=== PATIENT | male | born 1995 | race Caucasian/White ===

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

== ENCOUNTER 2017-07-05 10:24 | Emergency (ER) | payer BC ==
[~2017-07-05] VITALS: Ht 177.8 cm; Wt 90.5 kg
[~2017-07-05 10:24] MED LIST changes: -ALBU1AER9 INH; +CLBCRM30 EXT; -CLOB-65 EXT; -ESCI1TAB10 PO; -OMEP40CA PO; +OMEP40CA41 PO; +VENL150C PO; +VNTHFA/IN INH
[2017-07-05 10:28] VITALS: BP 135/83; PULSE 108; TEMP 36.9; O2SAT 96; Ht 177.8 cm; Wt 90.5 kg
--- NOTE | 2017-07-05 10:41 | EMERGENCY ROOM VISIT NOTE ---
ED Visit Note First contact with patient: 10:31 CHIEF COMPLAINT: Facial laceration HISTORY OF PRESENT ILLNESS: This 22-year-old male patient presents emergency department ambulatory complaining of a laceration to the left-sided forehead. The patient was helping a friend move and was outside the building. He bent over to pick something up and when he stood up he hit the left side of his forehead on the electric meter box. The patient did not strike his head on the ground. He did not have a loss of consciousness. He did become pale, sweaty and felt nauseated. There was no loss of consciousness, vomiting, or unusual behavior afterwards. Denies neck pain. No headache, nausea, or blurred vision. There is minimal bleeding. The patient denies any pain. The patient' s tetanus shot is up to date. REVIEW OF SYSTEMS: A 6 system review of systems was completed with positives and pertinent negatives listed in the HPI. ALLERGIES: Eggs, milk, peanuts MEDICATIONS: See nursing notes PMH: Eczema, GERD SOCIAL HISTORY: The patient lives locally. He is a smoker PHYSICAL EXAM: Vital Signs: Reviewed Nurse's notes, vital signs stable. GENERAL : This is a 22-year-old male, in no acute distress, well-developed, well- nourished. NEURO: The patient is alert and oriented to person place and time. No focal neurological defects. EYES: Pupils are round, equal, and react to light. EOMI. EARS: No hemotympanum. NECK: Supple. No cervical spine tenderness. FACE: No facial bone tenderness or mandibular tenderness. The mouth can open fully. The teeth are well aligned. No loose or chipped teeth. SKIN: There is a 3 cm laceration to the left side of the forehead. The edges gape apart with traction. There is minimal active bleeding and no foreign material in the wound. There are no deep structures present. Capillary refill less than two seconds. Normal sensation to light and sharp touch. EMERGENCY DEPARTMENT COURSE: I examined the patient. Using sterile technique the wound was cleaned with Betadine. The area was sterilely draped. 5 ml of 1% buffered lidocaine was used to anesthetize the laceration on the face. Once the patient was numb, the wound was copiously irrigated under pressure with sterile saline. The wound was explored and was as described above. The laceration was repaired using 3 subcuticular 6-0 fast absorbing sutures and 8 simple interrupted 6-0 nylon sutures were used to close the skin with the wound edges being well approximated. The patient tolerated the procedure well. The bleeding stopped. The area was cleaned with sterile saline and dressed with bacitracin ointment and bandage. The patient did not fall to the ground. He did not have any loss of consciousness. The patient did feel lightheaded, pale and diaphoretic when it initially happened. That has completely resolved. I suspect that he had a vagal response. The patient was discharged home in good condition. DIAGNOSIS: Facial laceration DISCHARGE INSTRUCTIONS: Keep wound clean and dry. Do not allow any crusting or dried blood to accumulate on sutures. If this occurs, use a 1:1 solution of hydrogen peroxide/water on a Q-tip to clean the wound. Use an antibiotic ointment for 3 days, then let wound dry. Suture removal in 5-7 days. Return sooner for any signs of infection (increasing redness, swelling, drainage, fever ). Ice for swelling. Keep covered when in sun until sutures removed then SPF 50 or higher for one year. Vitamin E oil if desired two weeks after suture removal for reduction of scar. 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 Status: Chronic (2) Anxiety Status: Chronic (3) Depression Status: Chronic (4) Epilepsy Status: Chronic (5) Gastro-esophageal reflux disease without esophagitis Status: Chronic (6) Narcolepsy without cataplexy Status: Chronic (7) Unspecified asthma Status: Chronic Current/Historical Medications Scheduled Albuterol Hfa (Ventolin Hfa), 2-4 PUFFS INH Q6H Amphetamine-Dextroamphetamine 20MG (Adderall 20MG), 40 MG PO BID Bupropion Hcl (Bupropion Hcl Xl), 300 MG PO QAM Clobetasol Propionate (Clobetasol Propionate Cream 0.05%), 1 APPLN EXT BID Epinephrine (Epipen), 0.3 MG IM UD Omeprazole (Prilosec), 40 MG PO DAILY Ranitidine (Zantac), 300 MG PO HS Tacrolimus (Topical) (Protopic), 1 APPLN TOP 5XWK Venlafaxine Hcl (Effexor Xr), 150 MG PO QAM Allergies Coded Allergies: Egg (Verified Allergy, Unknown, ANAPHYLATIC, 07/05/17) Milk (Verified Allergy, Unknown, ANAPHYLACTIC, 07/05/17) Peanut (Verified Allergy, Unknown, ANAPHYLACTIC, 07/05/17) Vital Signs Date Time Temp Pulse Resp B/P (MAP) Pulse Ox O2 Delivery O2 Flow Rate FiO2 07/05/17 10:28 36.9 108 20 135/83 96 Room Air Departure Information Impression Primary Impression: Closed head injury Additional Impression: Laceration of face Dispostion Home / Self-Care Condition GOOD Referrals Aleksandra Ramirez M.D. (PCP) Patient Instructions ED Head Injury Closed, ED Laceration All, My [facility] Additional Instructions Keep wound clean and dry. Do not allow any crusting or dried blood to accumulate on sutures. If this occurs, use a 1:1 solution of hydrogen peroxide/ water on a Q-tip to clean the wound. Use an antibiotic ointment for 3 days, then let wound dry. Suture removal in 5-7 days. Return sooner for any signs of infection (increasing redness, swelling, drainage, fever). Ice for swelling. Keep covered when in sun until sutures removed then SPF 50 or higher for one year. Vitamin E oil if desired two weeks after suture removal for reduction of scar. Problem Qualifiers Primary Impression: Closed head injury Encounter type: initial encounter Qualified Codes: S09.90XA - Unspecified injury of head, initial encounter Additional Impression: Laceration of face Encounter type: initial encounter Qualified Codes: S01.81XA - Laceration without foreign body of other part of head, initial encounter
[2017-07-05] MEDS ORDERED: XYLOCAINE 1%/SOD BICARB 20 ML VIAL INFIL ONE (10:45)
== END 2017-07-05 11:35 | disposition home or self-care (01) ==
LOC: C.EDB 10:25 → C.EDA 11:35
DX: S01.81XA Laceration without foreign body of other part of head, initial encounter (principal); W22.8XXA Striking against or struck by other objects, initial encounter; Y93.E6 Activity, residential relocation; K21.9 Gastro-esophageal reflux disease without esophagitis; L30.9 Dermatitis, unspecified; F17.210 Nicotine dependence, cigarettes, uncomplicated; F41.9 Anxiety disorder, unspecified; F32.9 Major depressive disorder, single episode, unspecified; G40.909 Epilepsy, unspecified, not intractable, without status epilepticus; G47.419 Narcolepsy without cataplexy; J45.909 Unspecified asthma, uncomplicated; Z79.899 Other long term (current) drug therapy

== ENCOUNTER → 2017-08-16 | Outpatient (CLI) | payer BC ==
[~2017-08-16] MED LIST changes: -DIPH25CA65 PO; -LEVO-371 PO; -MISCCAP80 PO; +TACR0.1O TOP; -TACR0.1O18 TOP
--- NOTE | 2017-08-16 14:14 | DIAGNOSTIC IMAGING REPORT ---
(TESTICULAR) SCROTUM-CONT CLINICAL HISTORY: 22 years-old Male presenting with PAIN OF TESTES. TECHNIQUE: Real-time grayscale and color and spectral Doppler ultrasound imaging of the scrotum was performed. COMPARISON: None. FINDINGS: Right testis: Normal echogenicity and echotexture. Testis measures 5.1 x 3.3 x 2.7 cm. Normal color Doppler flow and arterial and venous waveforms in the testicular parenchyma. Epididymal head contains a 2 mm cyst or spermatocele. Trace hydrocele. No varicocele. Left testis: Normal echogenicity and echotexture. Testis measures 4.9 x 3.1 x 2.6 cm. Normal color Doppler flow and arterial and venous waveforms in the testicular parenchyma. Epididymal head normal. No hydrocele. No varicocele. Symmetric perfusion of the testes. IMPRESSION: No evidence of testicular torsion or epididymitis-orchitis. Electronically signed by: Howard Figueroa M.D. 08/16/2017 2:13 PM Dictated Date/Time: 08/16/2017 2:11 PM
== END | disposition home or self-care (01) ==
LOC: C.ULTR 13:10
PROVIDERS: ATTEND Registered Nurse
DX: N50.819 Testicular pain, unspecified (principal)

== ENCOUNTER 2017-09-10 10:32 | Emergency (ER) | payer BC ==
[~2017-09-10] VITALS: Ht 177.8 cm; Wt 95.0 kg
[2017-09-10 10:35] VITALS: TEMP 36.8; Ht 177.8 cm; Wt 95.0 kg
[2017-09-10 11:41] LABS: URINE APPEARANCE CLEAR (CLEAR); URINE BILIRUBIN NEG (NEG); URINE COLOR DK YELLOW; URINE NITRITE NEG (NEG); URINE PH 5.5 (4.5-7.5); URINE SPECIFIC GRAVITY 1.025 (1.000-1.030); UROBILINOGEN NEG (NEG)
[2017-09-10 11:45] LABS: MANUAL MICROSCOPIC REQUIRED? NO; REVIEW REQ? NO
[2017-09-10 12:15] LABS: BASO % 0.8 %; BASO ABS # 0.05 K/uL (0-0.2); COMPLETE YES; EOS % 7.4 %; HEMATOCRIT 45.9 % (42-52); IG% 0.3 %; LYMPH % 24.9 %; LYMPH ABS # 1.49 K/uL (1.2-3.4); MEAN CELL VOLUME 84.4 fL (80-100); MEAN CORPUSCULAR HEMOGLOBIN 29.6 pg (25-34); MEAN CORPUSCULAR HGB CONC 35.1 g/dl (32-36); MEAN PLATELET VOLUME 9.8 fL (7.4-10.4); MONO % 8.7 %; NEUT % 57.9 %; PLATELET COUNT 295 K/uL (130-400); RED BLOOD COUNT 5.44 M/uL (4.7-6.1); WHITE BLOOD COUNT 5.98 K/uL (4.8-10.8)
[2017-09-10 12:31] LABS: BUN/CREATININE RATIO 8.8 (10-20); CALCIUM 9.1 mg/dl (8.5-10.1); CREATININE 0.89 mg/dl (0.60-1.40); POTASSIUM 3.5 mmol/L (3.5-5.1)
--- NOTE | 2017-09-10 12:45 | DIAGNOSTIC IMAGING REPORT ---
(TESTICULAR) SCROTUM-CONT HISTORY: Pain bilat testicular pain, recent epididymitis COMPARISON: 08/16/2017 FINDINGS: Right testis: Maximum dimension 5 cm. Normal vascular flow. Left testis: Maximum dimension 5.2 cm. Small 3 mm epididymal cyst. Normal vascular flow. IMPRESSION: Normal testicular ultrasound. Small left epididymal cyst. Normal vascular flow. Very small bilateral hydroceles of doubtful clinical significance The above report was generated using voice recognition software. It may contain grammatical, syntax or spelling errors. Electronically signed by: Jacek Luong M.D. 09/10/2017 12:44 PM Dictated Date/Time: 09/10/2017 12:43 PM
[2017-09-10] MEDS ORDERED: CEFTRIAXONE SOD INJ 1 GM ADDVIAL IV STA (13:30)
[2017-09-10] MEDS ORDERED: DOXYCYCLINE HYCLATE 100 MG CAP PO ONE (13:30)
[2017-09-10] MEDS ORDERED: CEFTRIAXONE SOD IV ONE (14:00)
[2017-09-10] MEDS ORDERED: DEXTROSE 5% IV ONE (14:00)
[2017-09-10] MEDS ORDERED: DXY100 PO (14:00)
[2017-09-10 14:41] VITALS: BP 130/74; PULSE 52; O2SAT 100
--- NOTE | 2017-09-10 18:30 | EMERGENCY ROOM VISIT NOTE ---
History Report prepared by Becca: Juancarlos Be Under the Supervision of: Dr. Ge Jules M.D. First contact with patient: 11:16 Chief Complaint: TESTICULAR PAIN Stated Complaint: TESTICULAR SWELLING AND PAIN Nursing Triage Summary: c/o worsenign testicular pain and swelling and has a lump in left and pain and swelling in the right has been tx for epididymitis History of Present Illness The patient is a 22 year old male who presents to the Emergency Room with complaints of worsening testicular pain that began recently. He has a history of epididymitis that was treated with a course antibiotics for ten days. His symptoms then occurred again 1 week later, so he went back to a clinic to be evaluated. They did not want to use antibiotics again, so they made him an appointment with Urology. His appointment is next week. However, he stopped experiencing epididymitis symptoms. His pain has now moved into his bilateral testicles. Intermittently, he will have lower abdominal pain secondary to his testicular symptoms. Yesterday, he felt a lump on his left testicle. He notes some mild urinary discomfort as well. Pt denies LOC, headache, fevers, chills, diaphoresis, visual changes, neck pain, chest pain, breathing difficulties, nausea, vomiting, back pain, melena, hematochezia, numbness, weakness, lymphadenopathy, rash, or other complaints. Source of History: patient Onset: recently Position: other (Bilateral testicles) Symptom Intensity: moderate Quality: ache Timing: constant Associated Symptoms: + abdominal pain (lower, intermittent), + urinary symptoms (mild discomfort) Review of Systems See HPI for pertinent positives and negatives. A total of ten systems were reviewed and were otherwise negative. 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 (2) Anaphylaxis (3) Anxiety (4) Depression (5) Epilepsy (6) Gastro-esophageal reflux disease without esophagitis (7) Milk protein allergy (8) Narcolepsy without cataplexy (9) Unspecified asthma Family History Diabetes mellitus Heart disease Social History Smoking Status: Current Every Day Smoker Alcohol Use: none Drug Use: none Marital Status: single Housing Status: lives with family Occupation Status: employed, student Current/Historical Medications Scheduled Albuterol Hfa (Ventolin Hfa), 2-4 PUFFS INH Q6H Amphetamine-Dextroamphetamine 20MG (Adderall 20MG), 40 MG PO BID Bupropion Hcl (Bupropion Hcl Xl), 300 MG PO QAM Clobetasol Propionate (Clobetasol Propionate Cream 0.05%), 1 APPLN EXT BID Doxycycline Hyclate (Doxycycline Hyclate), 100 MG PO BID Epinephrine (Epipen), 0.3 MG IM UD Omeprazole (Prilosec), 40 MG PO DAILY Ranitidine (Zantac), 300 MG PO HS Tacrolimus (Topical) (Protopic), 1 APPLN TOP 5XWK Venlafaxine Hcl (Effexor Xr), 150 MG PO QAM Allergies Coded Allergies: Egg (Verified Allergy, Unknown, ANAPHYLATIC, 09/10/17) Milk (Verified Allergy, Unknown, ANAPHYLACTIC, 09/10/17) Peanut (Verified Allergy, Unknown, ANAPHYLACTIC, 09/10/17) Physical Exam Vital Signs Date Time Temp Pulse Resp B/P (MAP) Pulse Ox O2 Delivery O2 Flow Rate FiO2 09/10/17 14:41 52 18 130/74 100 09/10/17 12:46 77 16 119/75 99 Room Air 09/10/17 10:35 36.8 91 16 124/87 100 Room Air Physical Exam GENERAL: Awake, alert, well-appearing, in no distress HENT: Normocephalic, atraumatic. Oropharynx unremarkable. EYES: Normal conjunctiva. Sclera non-icteric. NECK: Supple. No nuchal rigidity. FROM. No JVD. RESPIRATORY: Clear to auscultation. CARDIAC: Regular rate, normal rhythm. Extremities warm and well perfused. Pulses equal. ABDOMEN: Soft, non-distended. Minimal suprapubic tenderness to palpation. No rebound or guarding. No masses. RECTAL: Deferred. : Right testicular and spermatic cord discomfort. A left testicular mass is appreciated in the epididymal/spermatic cord junction. Mildly tender to palpation. No scrotal swelling. Normal penis. No discharge. MUSCULOSKELETAL: Chest examination reveals no tenderness. The back is symmetrical on inspection without obvious abnormality. There is no CVA tenderness to palpation. No joint edema. LOWER EXTREMITIES: Calves are equal size bilaterally and non-tender. No edema. No discoloration. NEURO: Normal sensorium. No sensory or motor deficits noted. SKIN: No rash or jaundice noted. Medical Decision & Procedures ER Provider Diagnostic Interpretation: Radiology results as stated below per my review and radiologist interpretation: (TESTICULAR) SCROTUM-CONT HISTORY: Pain bilat testicular pain, recent epididymitis COMPARISON: 08/16/2017 FINDINGS: Right testis: Maximum dimension 5 cm. Normal vascular flow. Left testis: Maximum dimension 5.2 cm. Small 3 mm epididymal cyst. Normal vascular flow. IMPRESSION: Normal testicular ultrasound. Small left epididymal cyst. Normal vascular flow. Very small bilateral hydroceles of doubtful clinical significance The above report was generated using voice recognition software. It may contain grammatical, syntax or spelling errors. Electronically signed by: Jacek Luong M.D. 09/10/2017 12:44 PM Dictated Date/Time: 09/10/2017 12:43 PM Laboratory Results 09/10/17 11:50 Red Blood Count 5.44, Mean Corpuscular Volume 84.4, Mean Corpuscular Hemoglobin 29.6, Mean Corpuscular Hemoglobin Concent 35.1, Mean Platelet Volume 9.8, Neutrophils (%) (Auto) 57.9, Lymphocytes (%) (Auto) 24.9, Monocytes (%) (Auto) 8.7, Eosinophils (%) (Auto) 7.4, Basophils (%) (Auto) 0.8, Neutrophils # (Auto) 3.46, Lymphocytes # (Auto) 1.49, Monocytes # (Auto) 0.52, Eosinophils # (Auto) 0.44, Basophils # (Auto) 0.05 09/10/17 11:50 Test 09/10/17 11:10 09/10/17 11:50 Urine Color DK YELLOW Urine Appearance CLEAR (CLEAR) Urine pH 5.5 (4.5-7.5) Urine Specific Elizabeth 1.025 (1.000-1.030) Urine Protein NEG (NEG) Urine Glucose (UA) NEG (NEG) Urine Ketones TRACE (NEG) Urine Occult Blood NEG (NEG) Urine Nitrite NEG (NEG) Urine Bilirubin NEG (NEG) Urine Urobilinogen NEG (NEG) Urine Leukocyte Esterase NEG (NEG) White Blood Count 5.98 K/uL (4.8-10.8) Red Blood Count 5.44 M/uL (4.7-6.1) Hemoglobin 16.1 g/dL (14.0-18.0) Hematocrit 45.9 % (42-52) Mean Corpuscular Volume 84.4 fL (80-100) Mean Corpuscular Hemoglobin 29.6 pg (25-34) Mean Corpuscular Hemoglobin Concent 35.1 g/dl (32-36) Platelet Count 295 K/uL (130-400) Mean Platelet Volume 9.8 fL (7.4-10.4) Neutrophils (%) (Auto) 57.9 % Lymphocytes (%) (Auto) 24.9 % Monocytes (%) (Auto) 8.7 % Eosinophils (%) (Auto) 7.4 % Basophils (%) (Auto) 0.8 % Neutrophils # (Auto) 3.46 K/uL (1.4-6.5) Lymphocytes # (Auto) 1.49 K/uL (1.2-3.4) Monocytes # (Auto) 0.52 K/uL (0.11-0.59) Eosinophils # (Auto) 0.44 K/uL (0-0.5) Basophils # (Auto) 0.05 K/uL (0-0.2) RDW Standard Deviation 40.0 fL (36.4-46.3) RDW Coefficient of Variation 13.1 % (11.5-14.5) Immature Granulocyte % (Auto) 0.3 % Immature Granulocyte # (Auto) 0.02 K/uL (0.00-0.02) Anion Gap 6.0 mmol/L (3-11) Est Creatinine Clear Calc Drug Dose 153.2 ml/min Estimated GFR () 142.7 Estimated GFR (Non- 123.1 BUN/Creatinine Ratio 8.8 (10-20) Calcium Level 9.1 mg/dl (8.5-10.1) Total Bilirubin 0.8 mg/dl (0.2-1) Direct Bilirubin 0.2 mg/dl (0-0.2) Aspartate Amino Transf (AST/SGOT) 19 U/L (15-37) Alanine Aminotransferase (ALT/SGPT) 30 U/L (12-78) Alkaline Phosphatase 127 U/L (45-117) Total Protein 7.3 gm/dl (6.4-8.2) Albumin 4.2 gm/dl (3.4-5.0) Lipase 94 U/L (73-393) Laboratory results reviewed by me Medications Administered Medications (Trade) Dose Ordered Sig/Adam Route Start Time Stop Time Status Last Admin Dose Admin Doxycycline Hyclate (Vibramycin Cap) 100 mg ONE ONCE PO 09/10/17 13:30 09/10/17 13:32 DC 09/10/17 13:57 100 MG Ceftriaxone Sodium 250 mg/ Dextrose 27.5 ml @ 52 mls/hr ONE ONCE IV 09/10/17 14:00 09/10/17 14:31 DC 09/10/17 13:56 52 MLS/HR ED Course 1116: The patient was evaluated in room C5. A complete history and physical exam was performed. 1330: Ordered Vibramycin Cap 100 mg PO 1332: I updated the patient at this time. 1400: Ordered Ceftriaxone Sodium 250 mg/Dextrose 27.5 ml @ 52 mls/hr IV 1410: I reevaluated the patient. Discussed results and discharge instructions: He verbalized understanding and agreement. The patient is ready for discharge. Medical Decision Triage Nursing notes reviewed and agree them. The patient's history was concerning for testicular swelling. Differential diagnosis: Etiologies such as torsion, mass, infection, hernia, hydrocele, epididymitis, trauma, intra-abdominal process, as well as others were entertained. Physical examination: As above. Tender epididymis bilaterally. Normal lie. No signs of cellulitis ER treatment provided: Oral doxycycline IV Rocephin On reassessment the patient was stable. Diagnostic interpretation by me: The labs revealed an unremarkable CBC and chemistry panel. The patient had an unremarkable urinalysis. Imaging studies: Ultrasound as above The patient has a pending appointment with urology. He has tender epididymis on examination. I discussed treating him empirically and having him follow-up with urology. He will wear supportive underwear. He'll use NSAIDs. If he has any worsening symptoms he will come back. The patient felt comfortable with the plan. By the evaluation outlined above emergent etiologies such as torsion, mass, infection, hernia, significant hydrocele, trauma, intra-abdominal process, as well as others were deemed relatively unlikely. The patient was informed about the findings as listed above. All questions were answered and he was pleased with the treatment. Return instructions were outlined and the patient was discharged in stable condition. Outpatient prescription management: Doxycycline Referral: The patient was referred to urology for a recheck of the current condition. Medication Reconcilliation Current Medication List: was personally reviewed by me Blood Pressure Screening Patient's blood pressure: Normal blood pressure Blood pressure disposition: Did not require urgent referral Impression Primary Impression: Testicle tenderness Additional Impressions: Epididymitis Epididymal cyst Scribe Attestation The scribe's documentation has been prepared under my direction and personally reviewed by me in its entirety. I confirm that the note above accurately reflects all work, treatment, procedures, and medical decision making performed by me. Departure Information Dispostion Home / Self-Care Prescriptions Doxycycline Hyclate (Doxycycline Hyclate) 100 Mg Cap 100 MG PO BID for 7 Days, #14 CAP Prov: Ge Jules MD 09/10/17 Referrals No Doctor, Assigned (PCP) Forms HOME CARE DOCUMENTATION FORM, IMPORTANT VISIT INFORMATION, WORK / SCHOOL INSTRUCTIONS Patient Instructions My [facility] Additional Instructions Doxycycline 100mg: Take one pill twice daily for seven days. Take with food, but avoid dairy. Avoid prolonged sun exposure since this medication makes you temporarily more susceptible to sunburns. All antibiotics can cause diarrhea. If this occurs and you feel worse or it does not resolve in 1-2 days follow up with your doctor or return to the Emergency Department as this could be signs of serious underlying problems. Any medication can cause an allergic reaction, stop the pills immediately and return to the ER for rash, hives, breathing difficulties, or swelling. Ibuprofen(Motrin, Advil) may be used for fever or pain. Use 600mg every six hours as needed. Take with food. Avoid using more than 2400mg in a 24 hour period. Do not use 2400mg per day for more than three consecutive days without physician direction. Prolonged inappropriate use can lead to stomach upset or ulcers. And/or Tylenol: Take 1000 mg every 6 hours as needed for pain. Do not take more than 3000 mg in a 24 hour period. Wear supportive underwear. Activity as tolerated. Return to the ER for worsening testicular pain, abdominal pain, vomiting, fevers , bloody stools, or as needed. Follow-up with urology as scheduled. Problem Qualifiers
== END 2017-09-10 14:35 | disposition home or self-care (01) ==
LOC: C.EDB 10:33 → C.EDC 14:35
DX: N45.1 Epididymitis (principal); N50.3 Cyst of epididymis; F41.9 Anxiety disorder, unspecified; F32.9 Major depressive disorder, single episode, unspecified; K21.9 Gastro-esophageal reflux disease without esophagitis; J45.909 Unspecified asthma, uncomplicated; G40.909 Epilepsy, unspecified, not intractable, without status epilepticus; G47.419 Narcolepsy without cataplexy; Z83.3 Family history of diabetes mellitus; F17.210 Nicotine dependence, cigarettes, uncomplicated; Z79.899 Other long term (current) drug therapy

== ENCOUNTER 2020-04-14 16:10 | Observation (INO) ==
[2020-04-14] MEDS ORDERED: FAMOTIDINE 20MG/5ML IV PUSH IV STA (16:26)
[2020-04-14] MEDS ORDERED: SODIUM CHLORIDE 0.9% 1000ML 1,000 ML IV ONE (16:26)
[2020-04-14] MEDS ORDERED: DEXAMETHASONE SOD INJ 4 MG/ML VIAL IV STA (16:26)
[2020-04-14] MEDS ORDERED: DiphenhydrAMINE HCL 50 MG/ML VIAL IV STA ×3 (16:26→18:59)
--- NOTE | 2020-04-14 16:39 | Emergency Department Note ---
History of Present Illness General Chief complaint: Allergic Reaction Stated complaint: ALLERGIC REACTION Time Seen by Provider: 04/14/20 16:20 Source: patient Mode of arrival: ambulatory Limitations: no limitations History of Present Illness Maximum Pain Intensity: 0 milk, eggs andThis patient is a 25-year-old male who presents to the emergency department for evaluation of an allergic reaction. The patient reports that his symptoms started about 30 minutes prior to arrival. He reports that he was eating a burger and about fpc through, developed a feeling of swelling in his throat and difficulty swallowing. He then realized there was cheese on the burger. He reports he has a history of anaphylactic reactions to milk, eggs and peanuts. He reports that he immediately used his EpiPen. He reports that he feels somewhat jittery at this time and still feels a small amount of swelling in his throat. He denies any rash, itching, abdominal pain, vomiting or difficulty breathing. Home Medications Home Medications Medication Instructions Recorded Confirmed Type dextroamphetamine-amphetamine 30 mg PO BID 06/11/18 04/14/20 History [Adderall] epinephrine [EpiPen 2-Amrit] 0.3 mg IM ONCE PRN #1 ea 03/02/19 04/14/20 Rx albuterol sulfate 1 inh INHALATION QID PRN 12/04/19 04/14/20 History tacrolimus 1 applic TOPICAL DIRECTED PRN 12/04/19 04/14/20 History diphenhydramine HCl [Benadryl] 50 mg PO Q8H PRN 7 Days #30 cap 04/15/20 Rx prednisone 40 mg PO DAILY PRN 3 Days #6 tab 04/15/20 Rx Allergies Allergy/AdvReac Type Severity Reaction Status Date / Time cheese Allergy Severe ANAPHYLAXIS Unverified 04/14/20 16:57 egg Allergy Unknown ANAPHYLATIC Verified 04/14/20 16:57 milk Allergy Unknown ANAPHYLACTI Verified 04/14/20 16:57 C peanut Allergy Unknown ANAPHYLACTI Verified 04/14/20 16:57 C Past Med/Surg History Family History Mother Hypertension Grandmother Hypertension Grandfather Heart disease Diabetes Grandmother Diabetes Other No significant family history Social History Preferred Language: Welsh Communication Ability: Effective Manager Material Required: No Beliefs That Will Affect Care: None Current Living Situation: Parent and Family Feels Safe at Home: Yes Smoking Status: Current every day smoker Tobacco Type: pipe ; Hx Alcohol Use: Yes Alcohol type: beer and hard liquor Hx Substance Use: No Review of Systems A total of 10 systems reviewed and were otherwise negative Physical Exam Vital Signs Vital Signs - 24 hr 04/14/20 16:15 04/14/20 16:28 04/14/20 17:00 Temperature 37.1 C Temperature Source Oral Pulse Rate 104 H 100 H Pulse Rate [Apical] 95 H Respiratory Rate 18 16 17 Respiratory Effort / Characteristics Non-Labored Non-Labored Respiratory Depth Normal Normal Blood Pressure 140/93 133/93 Blood Pressure [Right Arm] 133/61 Blood Pressure Mean 108 107 Blood Pressure Mean [Right Arm] 85 Pulse Oximetry 100 96 100 Oxygen Delivery Method Room Air Room Air Room Air Fraction of Inspired Oxygen 96 Sepsis Recent Fever Within 48 Hours No Sepsis New/Unexplained Change in Mental Status No Sepsis Action Taken by Nursing No Action Required 04/14/20 17:15 04/14/20 17:30 04/14/20 17:41 Temperature Temperature Source Pulse Rate 114 H 116 H 125 H Pulse Rate [Apical] Respiratory Rate 15 24 19 Respiratory Effort / Characteristics Respiratory Depth Blood Pressure 123/90 119/87 139/102 H Blood Pressure [Right Arm] Blood Pressure Mean 103 103 108 Blood Pressure Mean [Right Arm] Pulse Oximetry 99 99 97 Oxygen Delivery Method Room Air Fraction of Inspired Oxygen Sepsis Recent Fever Within 48 Hours Sepsis New/Unexplained Change in Mental Status Sepsis Action Taken by Nursing 04/14/20 17:46 04/14/20 17:48 04/14/20 18:00 Temperature Temperature Source Pulse Rate 125 H 103 H Pulse Rate [Apical] 128 H Respiratory Rate 27 H 26 H 22 Respiratory Effort / Characteristics Spontaneous Short of Breath Respiratory Depth Blood Pressure 126/91 131/83 Blood Pressure [Right Arm] Blood Pressure Mean 97 98 Blood Pressure Mean [Right Arm] Pulse Oximetry 99 98 97 Oxygen Delivery Method Nebulizer Room Air Room Air Fraction of Inspired Oxygen Sepsis Recent Fever Within 48 Hours Sepsis New/Unexplained Change in Mental Status Sepsis Action Taken by Nursing VITALS: Vitals are noted on the nurse's note and reviewed by myself. GENERAL: This is a 25-year-old male, in no acute distress, nondiaphoretic, well- developed well-nourished. SKIN: The skin was without rashes. EARS: External auditory canals clear, tympanic membranes pearly huntley without erythema or effusion bilaterally. EYES: Pupils equal round and reactive to light and accommodation. MOUTH: Mucous membranes moist. Tonsils are not enlarged. Pharynx without erythema or exudate. Uvula midline. Airway patent. NECK: Supple without nuchal rigidity. No lymphadenopathy. HEART: Regular rate and rhythm without murmurs gallops or rubs. LUNGS: Clear to auscultation bilaterally without wheezes, rales or rhonchi. No retractions or accessory muscle use. ABDOMEN: Positive bowel sounds x 4. Soft, nontender to palpation. NEURO: Patient was alert and oriented to person place and time. Course Reevaluation(s) Reevaluation #1: Patient was reevaluated and was having worsening symptoms at this time. An additional dose of epinephrine as well as a racemic epinephrine nebulizer were ordered. Consultations Consultation #1: Dr. Saunders [facility] hospitalist Administered Medications Discontinued Medications Dexamethasone (Decadron) 10 mg IV NOW STA Stop: 04/14/20 16:27 Last Admin: 04/14/20 16:34 Dose: 10 mg Documented by: [id number] Diphenhydramine HCl (Benadryl) 50 mg IV NOW STA Stop: 04/14/20 16:27 Last Admin: 04/14/20 16:33 Dose: 50 mg Documented by: [id number] Diphenhydramine HCl (Benadryl) 25 mg IV NOW STA Stop: 04/14/20 17:15 Last Admin: 04/14/20 17:17 Dose: 25 mg Documented by: [id number] Diphenhydramine HCl (Benadryl) 25 mg IV NOW STA Stop: 04/14/20 19:00 Last Admin: 04/14/20 19:15 Dose: 25 mg Documented by: [id number] Diphenhydramine HCl (Benadryl Capsule) 50 mg PO Q8H [facility]AN[facility]O Stop: 05/15/20 00:00 Last Admin: 04/15/20 07:47 Dose: 50 mg Documented by: [id number] Admin: 04/15/20 00:14 Dose: 50 mg Documented by: [id number] Epinephrine (Raccemic Epinephrine 2.25% 0.5ml) 0.5 ml NEB NOW STA Stop: 04/14/20 17:39 Last Admin: 04/14/20 17:48 Dose: 0.5 ml Documented by: [id number] Epinephrine HCl (Epinephrine) 0.3 mg IM NOW STA Stop: 04/14/20 17:34 Last Admin: 04/14/20 17:36 Dose: 0.3 mg Documented by: [id number] Epinephrine HCl (Epinephrine) Confirm Administered Dose 1 mg .ROUTE .STK-MED ONE Stop: 04/14/20 17:35 Last Admin: 04/14/20 17:37 Dose: Not Given Documented by: [id number] Famotidine (Pepcid 20mg Iv Push) 20 mg IV ONE STA Stop: 04/14/20 16:27 Last Admin: 04/14/20 16:34 Dose: 20 mg Documented by: [id number] Famotidine (Pepcid 20mg Iv Push) Confirm Administered Dose 20 mg IV .STK-MED ONE Stop: 04/14/20 18:55 Last Admin: 04/14/20 18:59 Dose: Not Given Documented by: [id number] Sodium Chloride (Nss 1000ml) 1,000 mls @ 999 mls/hr IV .Q1H1M ONE Stop: 04/14/20 17:26 Last Infusion: 04/14/20 17:30 Dose: 0 mls/hr Documented by: [id number] Admin: 04/14/20 16:30 Dose: 999 mls/hr Documented by: [id number] Epinephrine HCl 4 mg/ Dextrose 254 mls @ 7.582 mls/hr IV .Q24H [facility]; Protocol Stop: 05/14/20 18:29 Last Admin: 04/15/20 06:38 Dose: Not Given Documented by: [id number] Epinephrine HCl 2 mg/ Dextrose 252 mls @ 0 mls/hr IV .Q0M STA; Protocol Stop: 04/14/20 18:27 Last Admin: 04/15/20 06:37 Dose: Not Given Documented by: [id number] Famotidine 20 mg/ Syringe 5 mls @ 2.5 mls/min IV ONE ONE Stop: 04/14/20 18:46 Last Admin: 04/14/20 18:59 Dose: 2.5 mls/min Documented by: [id number] Famotidine 20 mg/ Syringe 5 mls @ 2.5 mls/min IV Q12H [facility] Stop: 05/15/20 07:59 Last Admin: 04/15/20 07:47 Dose: 2.5 mls/min Documented by: [id number] Sodium Chloride (Nss 1000ml) 1,000 mls @ 125 mls/hr IV .Q8H [facility] Stop: 05/14/20 19:48 Last Admin: 04/15/20 04:08 Dose: 125 mls/hr Documented by: [id number] Infusion: 04/15/20 04:08 Dose: 125 mls/hr Documented by: [id number] Admin: 04/14/20 20:32 Dose: 125 mls/hr Documented by: [id number] Methylprednisolone 60 mg/ (Syringe) 0.96 mls @ 1.5 mls/min IV Q6 [facility] Stop: 05/15/20 00:00 Last Admin: 04/15/20 05:23 Dose: 1.5 mls/min Documented by: [id number] Admin: 04/15/20 00:15 Dose: 1.5 mls/min Documented by: [id number] Methylprednisolone (Solumedrol) 125 mg IV NOW STA Stop: 04/14/20 18:46 Last Admin: 04/14/20 18:59 Dose: 125 mg Documented by: [id number] Miscellaneous () 1 ea N/A NOW STA Stop: 04/14/20 18:27 Last Admin: 04/15/20 06:37 Dose: Not Given Documented by: [id number] Critical Care Time Critical Care Time: Yes Total Critical Care Time: 35 I have personally spent greater than 35 minutes of critical care time in the direct management of this patient. This includes bedside care, interpretation of diagnostic studies, and testing, discussion with consultants, patient, and family members, and other required patient management activities. This 35 minutes is in excess of all separately billable procedures. Medical Decision Making Differential Diagnosis Differential diagnosis includes allergic reaction, anaphylaxis, allergic dermatitis, angioedema, among others. Medical Records Attestation: I reviewed the patient's medical records. Home Medications Current Medication List: was personally reviewed by me Laboratory Data Attestation: I reviewed the patient's lab results. Result diagrams: 04/15/20 04:37 Blood Pressure Blood Pressure Findings: Normal blood pressure MDM Narrative The patient is a 25-year-old male who presents today for evaluation of an anaphylactic reaction after consuming dairy. Patient used his EpiPen prior to arrival. He was initially treated with IV Decadron, Benadryl, fluids and Pepcid and initially did have relief. Within an hour, patient had return of worsening symptoms and was treated with an additional dose of epi as well as racemic epinephrine nebulizer. Patient had some improvement with this but did have continued and worsening skin involvement. Given the rebound reaction and need for multiple doses of epinephrine, [facility] to [facility] the patient for further care. Impression & Plan Anaphylaxis Discharge Plan Visit Data *Final* Discharge Date/Time: 04/14/20 19:19 Chief Complaint: Allergic Reaction Stated Complaint: ALLERGIC REACTION ED Provider: [facility] ED Midlevel Provider: Luz Elena Angel Discharge Problem: Anaphylaxis Patient Disposition: Admitted As Inpatient Condition: Good Discharge Instructions Interventions: ED Discharge Assessment Last Done: 04/14/20 19:19 Discharge Problem: Anaphylaxis Qualifiers: Encounter type: initial encounter Qualified Code(s): T78.2XXA - Anaphylactic shock, unspecified, initial encounter
[2020-04-14] MEDS ORDERED: EPINEPHrine INJ 1 MG/ML AMP IM STA ×2 (17:33→19:49)
[2020-04-14] MEDS ORDERED: EPINEPHrine INJ 1 MG/ML AMP ONE (17:34)
[2020-04-14] MEDS ORDERED: RACEPINEPHRINE 2.25% NEBU SOLN 0.5 ML VIAL NEB STA (17:38)
--- NOTE | 2020-04-14 18:18 | History & Physical Report ---
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: Admission and Anticipated Discharge Date Admission Date: Patient be observed in our facility he will be given continued intravenous Solu-Medrol famotidine and Benadryl scheduled of PRN racemic nebulizers and subcutaneous epinephrine as needed be hydrated with IV fluid DVT prevention is early ambulation History of Present Illness Primary Care Provider: Jane Ng MD Patient reportedly had ordered a hamburger restaurant without cheese but it may have had a small amount of cheese he subsequently about half of the start feeling ill he began having itchiness and shortness of breath give himself an epinephrine autoinjector at home and presented to the ER Reportedly this patient has multiple food allergies and unfortunately had exposure to milk products his symptoms progressed after the epi autoinjector to the point where he became to the ER. After initial attempts to quelling his allergic reaction with parenteral steroids Pepcid and Benadryl he had a recurrence of shortness of breath and received an additional subcutaneous epinephrine and racemic epinephrine nebulizer. Patient remains with considerable injection of his eyes obvious hives and rash on his body however is not in respiratory distress he has no wheezes he did will swallow his own secretions he is tachycardic and hypertensive on the monitor Allergies Allergy/AdvReac Type Severity Reaction Status Date / Time cheese Allergy Severe ANAPHYLAXIS Unverified 04/14/20 16:57 egg Allergy Unknown ANAPHYLATIC Verified 04/14/20 16:57 milk Allergy Unknown ANAPHYLACTI Verified 04/14/20 16:57 C peanut Allergy Unknown ANAPHYLACTI Verified 04/14/20 16:57 C Home Medications Home Medications Medication Instructions Recorded Confirmed Type dextroamphetamine-amphetamine 30 mg PO BID 06/11/18 04/14/20 History [Adderall] epinephrine [EpiPen 2-Amrit] 0.3 mg IM ONCE PRN #1 ea 03/02/19 04/14/20 Rx albuterol sulfate 1 inh INHALATION QID PRN 12/04/19 04/14/20 History tacrolimus 1 applic TOPICAL DIRECTED PRN 12/04/19 04/14/20 History Past Med/Surg History Family History Mother Hypertension Grandmother Hypertension Grandfather Heart disease Diabetes Grandmother Diabetes Other No significant family history Social History Feels Safe at Home: Yes Smoking Status: Current every day smoker Review of Systems Review of Systems: Moderate distress and agitated no headache, blurry or double vision Copious mucus nasal secretions no speech or swallowing issues no chest pain, pressure or palpitations Feelings of shortness of breath, no stridor, cough or wheezes no abdominal pain, nausea or vomiting, diarrhea or constipation no dysuria, hematuria or frequency no focal joint pain or swelling no back pain, CVA tenderness or radicular pain Significant highs that are erythematous raised and pruritic no focal signs of weakness or numbness or altered sensation no complaints or anxiety or depression. Physical Exam Physical Exam: The patient appeared well nourished and normally developed. He appears to be in mild to moderate distress Vital signs as documented. Tachycardic and hypertensive Head exam is normocephalic atraumatic no scleral icterus Oropharynx is injected without exudates Neck is without JVD, thyromegaly, or carotid bruits. Lungs are clear to auscultation, no focal loss of breath sounds there are no wheezes Cardiac exam, Rhythm is tachycardic.. No murmurs, rubs or gallops. Abdominal exam reveals normal bowel sounds, soft non tender, no masses Extremities are nonedematous and both pedal pulses are normal. Neurologic exam is alert and oriented, no focal loss of strength or sensation Skin is with erythema and raised times about his flexural surfaces elbows and knees redness to his face injected sclera Psychologically is with anxiety Results & Data Results & Data ([facility]) Vital Signs (Past 12 Hours) Vital Signs Temp Pulse Pulse Resp BP BP Pulse Ox 04/14/20 18:00 103 H 22 131/83 97 04/14/20 17:48 128 H 26 H 98 04/14/20 17:46 125 H 27 H 126/91 99 04/14/20 17:41 125 H 19 139/102 H 97 04/14/20 17:30 116 H 24 119/87 99 04/14/20 17:15 114 H 15 123/90 99 04/14/20 17:00 100 H 17 133/93 100 04/14/20 16:28 95 H 16 133/61 96 04/14/20 16:15 98.8 F 104 H 18 140/93 100 PG Care Time/CCT Total # of Minutes Spent Total Time Spent with Patient: Total time spent is greater than 50% in coordination of care (as documented) at patient's floor/unit and/or counseling patient: Coding Level of Care Code 06860 OBS Care - Level 3 Diagnoses 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
[2020-04-14] MEDS ORDERED: EPINEPHrine 2 MG in DEXTROSE 5% 250 ML IV STA (18:26)
[2020-04-14] MEDS ORDERED: STAT IV Infusion **Titration per Protocol STA (18:26)
[2020-04-14] MEDS ORDERED: FAMOTIDINE 20 MG in SYRINGE 3 ML IV ONE (18:45)
[2020-04-14] MEDS ORDERED: methylPREDNISolone 125 MG/2 ML VIAL IV STA (18:45)
[2020-04-14] MEDS ORDERED: FAMOTIDINE 20MG/5ML IV PUSH IV ONE (18:54)
[2020-04-14] MEDS ORDERED: EPINEPHRINE ADULT AUTO-INJECT 0.3 MG SYR IM PRN (19:49)
[2020-04-14] MEDS ORDERED: LORazepam 0.5 MG/1 ML VIAL IV PRN (19:49)
[2020-04-14] MEDS ORDERED: ALBUTEROL 0.083% NEBU SOLN 3 ML VIAL NEB PRN (19:49)
[2020-04-14] MEDS ORDERED: MoRPHine SULFATE 2 MG/ML CARP IV PRN (19:49)
[2020-04-14] MEDS ORDERED: ONDANSETRON INJ 2 MG/ML 2 ML VIAL IV PRN (19:49)
[2020-04-14] MEDS: SODIUM CHLORIDE 0.9% 1000ML 1,000 ML IV SCH (20:32)
[2020-04-15] MEDS ORDERED: methylPREDNISolone 125 MG/2 ML VIAL IV SCH
[2020-04-15] MEDS: methylPREDNISolone 60 MG in SYRINGE 0 ML IV SCH ×2 (00:15→05:23)
[2020-04-15] MEDS: SODIUM CHLORIDE 0.9% 1000ML 1,000 ML IV SCH (04:08)
[2020-04-15 05:04] LABS: BUN Creatinine Ratio 11.4 (10-20); Calcium 8.3 mg/dl (8.5-10.1); Creatinine Clr Calc Pharmacy 139.8 ml/min; Est GFR (African American) 128.6; Potassium 4.1 mmol/L (3.5-5.1)
[2020-04-15] MEDS ORDERED: FAMOTIDINE 20 MG in SYRINGE 3 ML IV SCH (08:00)
--- NOTE | 2020-04-15 10:18 | Discharge Summary ---
Date of Service April 15, 2020 Admission HPI Per Admitting Provider Patient reportedly had ordered a hamburger restaurant without cheese but it may have had a small amount of cheese he subsequently about half of the start feeling ill he began having itchiness and shortness of breath give himself an epinephrine autoinjector at home and presented to the ER Reportedly this patient has multiple food allergies and unfortunately had exposure to milk products his symptoms progressed after the epi autoinjector to the point where he became to the ER. After initial attempts to quelling his allergic reaction with parenteral steroids Pepcid and Benadryl he had a recurrence of shortness of breath and received an additional subcutaneous epinephrine and racemic epinephrine nebulizer. Patient remains with considerable injection of his eyes obvious hives and rash on his body however is not in respiratory distress he has no wheezes he did will swallow his own secretions he is tachycardic and hypertensive on the monitor Principal Diagnosis Allergic reaction to milk Discharge Exam Constitutional WD/WN, vitals as above Eyes PERRL, conjunctivae normal, anicteric sclerae ENMT external ear and nose normal, oropharynx normal Neck trachea midline, no thyromegaly Respiratory normal respiratory effort, lungs clear to auscultation Cardiovascular RRR, no murmur, no edema Gastrointestinal (Abdomen) normal bowel sounds, soft, nontender, no hepatosplenomegaly Musculoskeletal no cyanosis or clubbing, extremities motor strength 5/5 Skin no rashes, warm and dry Neurologic patellar DTR's 2+ bilat, sensation intact and PERRL, EOMI, accommodation nl, no face palsy, no dysarthria Psychiatric A+Ox3, euthymic affect Lymphatic no cervical or axillary lymphadenopathy Discharge Data Allergies Allergy/AdvReac Type Severity Reaction Status Date / Time cheese Allergy Severe ANAPHYLAXIS Unverified 04/14/20 16:57 egg Allergy Unknown ANAPHYLATIC Verified 04/14/20 16:57 milk Allergy Unknown ANAPHYLACTI Verified 04/14/20 16:57 C peanut Allergy Unknown ANAPHYLACTI Verified 04/14/20 16:57 C Hospital Course (1) 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: received Epinephrine, Solu Medrol, Benadryl, Pepcid no symptoms morning of discharge swallowing and breathing normally, no lip swelling ate breakfast without difficulty patient wants to go home, says he has a lot of experience over the years with allergic reactions, this is his normal course use Benadryl as needed provided with script for Prednisone in case he has some swelling/sypmtoms tomorrow Total Time Total Time Spent Total Time Spent (In Minutes): 20 minutes Total Time Includes: Examination of the Patient, Discharge Planning and Medication Reconciliation Discharge Plan Discharge Items Patient Disposition: Home - Self-Care Reason For Visit: ANAPHALAXIS Discharge Diagnosis: Food allergy reaction Anaphylaxis Condition on Discharge: Good Goals: use Prednisone and Benadryl avoid food triggers Activity: Resume your previous activity Non-emergency contact: Primary Care Provider Call non-emergency contact if: you have any medication questions and your symptoms worsen Follow-up/Referrals: Jane Ng MD [Primary Care Provider] - Diet: Regular Addtl Attending Provider Instructions: Medications: - BENADRYL: take 50mg every 8 hours as needed for allergy symptoms - PREDNISONE: 40mg daily, if you feel normal tomorrow then no need to take, if you feel some swelling, anything abnormal, then I recommend you take 40mg daily x 3 days Allergic reaction: resolved with epinephrine, Benadryl, Solu Medrol symptoms should continue to resolve as you are familiar with these episodes recommend using Benadryl and Prednisone as needed if you don't feel normal tomorrow (ie still have some throat swelling, tightness) then I would take Prednisone 40mg and I would take it three days in a row follow up as needed with Dr. Ng, there is no need for specific follow up for this visit Pending Studies at Discharge: No Stand-Alone Forms: My [facility] [email or web address], Smoking Cessation Medications and DC Order Prescriptions: New diphenhydramine HCl [Benadryl] 25 mg Capsule 50 mg PO Q8H PRN (Reason: Allergic Reaction) 7 Days Qty: 30 RF: 0 Continued epinephrine [EpiPen 2-Amrit] 0.3 mg/0.3 mL auto-injector 0.3 mg IM ONCE PRN (Reason: bronchodilation) Qty: 1 RF: 0 albuterol sulfate 90 mcg/actuation Aerosol Powdr Breath Activated 1 inh INHALATION QID PRN (Reason: Shortness Of Breath Or Wheezing) RF: 0 tacrolimus 0.1 % ointment 1 applic topical DIRECTED PRN (Reason: Rash) RF: 0 dextroamphetamine-amphetamine [Adderall] 30 mg Tablet 30 mg PO BID RF: 0 Discharge Orders: Discharge Order (Routine); Ordered 04/15/20 Ordered By: Josef Fan Admission Data Admit Date/Time: 04/14/20 18:24 Attending Provider: Josef Fan Admit Provider: Meng Saunders Primary Care Provider: Jane Ng Other Interventions: Discharge Summary Assessment (RN) Last Done: 04/15/20 10:20 DC Date/Time DO NOT enter until pt leaves facility: 04/15/20 10:42 Coding Level of Care Code 86352 OBS Care - Discharge Diagnoses 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
== END 2020-04-15 10:42 | disposition home or self-care (01) ==
LOC: 1E 16:10 → ED 16:10 → SUATTDRO 18:24 → 1E 19:19

== ENCOUNTER 2024-09-27 12:34 | Inpatient (IN) ==
--- NOTE | 2024-09-27 12:53 | Emergency Department Note ---
History of Present Illness General Chief complaint: Allergic Reaction Stated complaint: ALLERGIC REACTION Time Seen by Provider: 09/27/24 12:42 History of Present Illness This is a 29-year-old male with history of anaphylaxis with milk, eggs, and peanuts that presents to the emergency department via private vehicle with complaints of "allergic reaction". Patient notes that today around noon time he ate a stick of venison. He notes he did not realize it contained cheese. Moments after ingesting he noted developing tongue numbness and then swelling to the mouth area. He then administered EpiPen x 1 to the right lateral thigh. He notes history of similar. He notes much of the symptoms have improved but he does note some generalized body itching and now the face feels "flushed". No trouble breathing or swallowing at the present time. No preceding infectious symptoms. No fever. No chest pain or shortness of breath. Home Medications Medication Instructions Recorded Confirmed Type albuterol sulfate 90 mcg/actuation 2 inh inhalation DIRECTED PRN 08/29/24 09/27/24 Rx aerosol inhaler shortness of breath or wheezing #6.7 grams epinephrine 0.3 mg/0.3 mL 0.3 mg (0.3 mL) IM ONCE PRN 09/27/24 Rx injection, auto-injector (EpiPen anaphylaxis #1 ea 2-Amrit) Allergies Allergy/AdvReac Type Severity Reaction Status Date / Time cheese Allergy Severe Anaphylaxis Verified 08/29/24 10:04 egg Allergy Severe Anaphylaxis Verified 08/29/24 10:04 milk Allergy Severe Anaphylaxis Verified 08/29/24 10:04 peanut Allergy Severe Anaphylaxis Verified 08/29/24 10:04 animal dander Allergy Intermediate Watery Verified 08/29/24 10:04 eyes, itchy throat grass pollen Allergy Intermediate Watery Verified 08/29/24 10:04 eyes, itchy throat house dust Allergy Intermediate Watery Verified 08/29/24 10:04 eyes, itchy throat mold Allergy Intermediate Watery Verified 08/29/24 10:04 eyes, itchy throat Past Med/Surg History Problem List Allergic reaction (Acute) Post-nasal drip Elevated liver enzymes Dyshidrotic eczema Abrasion of left index finger Asthma (Chronic) 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) Medical History Umbilical hernia without obstruction and without gangrene Encounter for pre-operative examination Supraumbilical hernia without gangrene and without obstruction Atopic dermatitis Gynecomastia Epididymal cyst Gastro-esophageal reflux disease without esophagitis Anxiety Hx of colonic polyp Age 21 (x1 polyp) GERD (gastroesophageal reflux disease) diet controlled Narcolepsy without cataplexy ADHD Anxiety controlled Depression controlled Eczema Asthma Allergy-induced asthma History of COVID-2021- mild flu symptoms > resolved Surgical History History of umbilical hernia repair (05/17/24) Open Umbilical Hernia Repair - Tom Alvarez DO, FACS H/O ventral hernia repair History of esophagogastroduodenoscopy (EGD) History of wisdom tooth extraction H/O colonoscopy Family History Mother Breast cancer Hypertension Grandmother Hypertension Grandfather Diabetes Heart disease Cancer Grandmother Diabetes Breast cancer Father Myocardial infarction Uncle Stroke Other No family history of adverse response to anesthesia Denies family history of Ovarian cancer Prostate cancer Colorectal cancer Social History Smoking Status: Light tobacco smoker Tobacco Type: Pipe Age Started Using Tobacco: 20; Cigarettes Per Day: vapes daily (advised on policy); Second Hand Exposure: No; Do You Dip or Chew Tobacco: Yes; Tobacco Cessation Education Requested by Patient: No Hx Alcohol Use: Yes Alcohol type: beer Alcohol Intake Frequency: 4 or More x per/Week Hx Substance Use: No Preferred Language: Portuguese Communication Ability: Effective Visual Impairment: No Limitations Hearing Ability: Normal Recruitment Intern Required: No Beliefs That Will Affect Care: None marital status: single Current Living Situation: Alone current occupational status: employed current occupation: [employer] How many Children do You have: 0 Feels Safe at Home: Yes Safety Concerns: Feels Safe At This Time Childhood Exposure to Second-Hand Smoke: Yes Diet: regular caffeine: Yes (soda/coffee) during the past year weight has: remained stable Dental Care, Regularly: Yes Physical Activity Frequency: 3-4 Times per Week Seatbelt Use: always Sunscreen Use: No Assistive Devices: Nebulizer Review of Systems A total of 10 systems reviewed and were otherwise negative Physical Exam Vital Signs Vital Signs - 24 hr 09/27/24 12:37 09/27/24 12:50 09/27/24 12:59 Temperature 36.6 C Temperature Source Skin Pulse Rate 112 H 109 H Pulse Rate from SpO2 Sensor Respiratory Rate 20 Blood Pressure 156/97 H Blood Pressure Mean 116 Pulse Oximetry 100 97 Oxygen Delivery Method Room Air Room Air Sepsis Recent Fever Within 48 Hours No Sepsis New/Unexplained Change in Mental Status No Sepsis Action Taken by Nursing No Action Required 09/27/24 13:09 09/27/24 13:20 09/27/24 13:36 Temperature Temperature Source Pulse Rate 99 H 97 H Pulse Rate from SpO2 Sensor 102 H 92 H Respiratory Rate 19 23 Blood Pressure 135/103 H 139/103 H Blood Pressure Mean 113 115 Pulse Oximetry 100 100 Oxygen Delivery Method Room Air Sepsis Recent Fever Within 48 Hours Sepsis New/Unexplained Change in Mental Status Sepsis Action Taken by Nursing 09/27/24 14:00 09/27/24 14:21 09/27/24 14:30 Temperature Temperature Source Pulse Rate 109 H 102 H 100 H Pulse Rate from SpO2 Sensor 106 H 106 H 95 H Respiratory Rate 17 17 17 Blood Pressure 133/98 131/92 131/92 Blood Pressure Mean 109 105 105 Pulse Oximetry 100 100 100 Oxygen Delivery Method Sepsis Recent Fever Within 48 Hours Sepsis New/Unexplained Change in Mental Status Sepsis Action Taken by Nursing 09/27/24 15:00 09/27/24 15:36 09/27/24 16:06 Temperature Temperature Source Pulse Rate 100 H 113 H 111 H Pulse Rate from SpO2 Sensor 96 H 111 H 117 H Respiratory Rate 18 20 22 Blood Pressure 138/86 145/85 H Blood Pressure Mean 103 105 Pulse Oximetry 94 98 97 Oxygen Delivery Method Sepsis Recent Fever Within 48 Hours Sepsis New/Unexplained Change in Mental Status Sepsis Action Taken by Nursing VITAL SIGNS - Vital signs and nursing notes were reviewed. Stable and afebrile. GENERAL - 29-year-old male appearing his stated age who is in no acute distress. Communicates well with provider and answers questions appropriately. SKIN -there is mild erythema to the face and neck region anteriorly. No urticaria. HEAD - NC/AT. EYES - PERRL with EOMI bilaterally. Sclera anicteric. EARS - No deformities of external structures noted on gross examination bilaterally. NOSE - Midline and without cyanosis. No epistaxis or purulent drainage noted. MOUTH/OROPHARYNX - Without perioral cyanosis. NECK - No nuchal rigidity. LUNGS - CTA CARDIAC - RRR ABDOMEN - Abdominal contour normal without pulsations or visible masses. BS normoactive all four quadrants. No tenderness, palpable masses, hepatosplenomegaly, or ascites noted. EXTREMITIES - No clubbing or peripheral cyanosis. +5/5 strength noted in UE/LE bilaterally. NEUROLOGIC - Cranial nerves II through XII grossly intact. PSYCH -alert, oriented and pleasant on exam. Course Administered Medications Diphenhydramine HCl (Diphenhydramine 50 Mg/Ml Vial) 25 mg IV Q6H LEANDRO Stop: 09/28/24 07:01 Last Admin: 09/27/24 18:48 Dose: 25 mg Documented By: MARGOT Discontinued Medications Diphenhydramine HCl (Diphenhydramine 50 Mg/Ml Vial) 50 mg IV NOW STA Stop: 09/27/24 12:51 Last Admin: 09/27/24 13:02 Dose: 50 mg Documented By: MAIA Epinephrine HCl (Epinephrine Inj 1 Mg/Ml Amp) 0.3 mg IM NOW STA Stop: 09/27/24 15:43 Last Admin: 09/27/24 15:50 Dose: 0.3 mg Documented By: MAIA Famotidine (Pepcid 20mg Iv Push) 20 mg in 5 mls @ 2.5 mls/min IV NOW STA Stop: 09/27/24 12:51 Last Admin: 09/27/24 13:02 Dose: 2.5 mls/min Documented By: MAIA Famotidine (Pepcid 20mg Iv Push) 20 mg in 5 mls @ 2.5 mls/min IV ONE ONE Stop: 09/27/24 17:31 Last Admin: 09/27/24 17:34 Dose: 2.5 mls/min Documented By: MAIA Methylprednisolone (Methylprednisolone 125 Mg/2 Ml Vial) 125 mg IV NOW STA Stop: 09/27/24 12:53 Last Admin: 09/27/24 13:02 Dose: 125 mg Documented By: MAIA Medical Decision Making Laboratory Data 09/27/24 12:58 09/27/24 12:58 Lab Results 09/27/24 Range/Units 12:58 WBC 7.38 (4.8-10.8) K/ul RBC 5.37 (4.70-6.10) M/uL Hgb 16.9 (14.0-18.0) g/dl Hct 46.3 (42.0-52.0) % MCV 86.2 (80.0-100.0) fL MCH 31.5 (25.0-34.0) pg MCHC 36.5 H (32.0-36.0) g/dL RDW Std Deviation 37.6 (36.4-46.3) fL RDW Coeff of Ramona 11.9 (11.5-14.5) % Plt Count 335 (130-400) K/uL MPV 9.7 (9.4-12.4) fL Immature Gran % (Auto) 0.4 % Neut % (Auto) 68.8 % Lymph % (Auto) 21.0 % [place] % (Auto) 6.8 % Eos % (Auto) 2.3 % Baso % (Auto) 0.7 % Neut # (Auto) 5.08 (1.40-6.50) K/uL Lymph # (Auto) 1.55 (1.20-3.40) K/uL [place] # (Auto) 0.50 (0.11-0.59) K/uL Eos # (Auto) 0.17 (0.00-0.50) K/uL Baso # (Auto) 0.05 (0.00-0.20) K/uL Immature Gran # (Auto) 0.03 (0.01-0.20) K/uL Sodium 139 (136-145) mmol/L Potassium 3.6 (3.5-5.1) mmol/L Chloride 105 (98-107) mmol/L Carbon Dioxide 26 (21-32) mmol/L Anion Gap 8 (3-11) BUN 13 (6-23) mg/dl Creatinine 0.90 (0.6-1.4) mg/dl Est Cr Clr Drug Dosing 147.0 ml/min eGFR 120.05 BUN/Creatinine Ratio 14.4 (10-20) Glucose 108 H (70-99(Fasting)) mg/dl Calcium 9.6 (8.6-10.3) mg/dl Total Bilirubin 1.0 (0.2-1.0) mg/dl AST 48 H (13-39) U/L ALT 66 H (7-52) U/L Alkaline Phosphatase 93 (34-104) U/L Total Protein 7.4 (6.0-8.3) gm/dl Albumin 4.9 (3.4-5.0) gm/dl Globulin 2.5 (2.5-4.0) gm/dl Albumin/Globulin Ratio 2.0 (0.9-2) MDM Narrative Patient was seen and evaluated as above in room B11. Review was performed of triage nursing notes and vital signs. I did review pertinent previous visits and patient history. After obtaining a thorough history and physical examination the above work up was performed. Patient presents to us today for assessment of allergic reaction. The patient has already administered EpiPen x 1 prior to arrival. He consumed venison today that unfortunately did also contain cheese which he did not realize until after consuming the venison. He notes history of anaphylaxis to cheese and this was the 0.3 mg IM. Patient appears to have had near resolution of symptoms but does have some mild erythema noted to the face and some generalized pruritic sensation. No evidence of anaphylaxis at the immediate time. IV access was established. Labs were drawn. Labs reveal no leukocytosis or concerning anemia. No emergent metabolic disturbance. Continued transaminitis noted which is not new. Patient notes he plans on cutting back his alcohol consumption. No recent acetaminophen use. Patient was medicated here with IV Benadryl, IV Pepcid, IV Solu-Medrol. Patient was reevaluated with some improvement of symptoms. Upon multiple reassessments patient continues to do well. Patient was observed here greater than 3 hours postingestion. Plan initially was to consider discharge and I began preparing paperwork and prescription was sent for EpiPen. However, after about 3-1/2 hours postingestion of the venison plus cheese he did note return of symptoms and did have urticaria to the bilateral upper extremities and some lip edema. Repeat IM epinephrine administered. There was improvement of symptoms however I do believe that further evaluation and management in the inpatient setting is warranted. Case discussed with the hospitalist service. Please refer to further documentation regarding his stay. In the evaluation and treatment of this patient the following differential diagnoses were entertained: Infection, anaphylaxis, angioedema, among others Impression & Plan Allergic reaction Discharge Plan Visit Data Chief Complaint: Allergic Reaction Stated Complaint: ALLERGIC REACTION ED Provider: Isiah Potts ED Midlevel Provider: Corky Quinones Discharge Problem: Allergic reaction Patient Disposition: Home - Self-Care Condition: Good Discharge Instructions Interventions: ED Discharge Assessment Last Done: 09/27/24 17:58
[2024-09-27] MEDS: diphenhydrAMINE 50 MG/ML VIAL IV STA (13:02)
[2024-09-27] MEDS: methylPREDNISolone 125 MG/2 ML VIAL IV STA (13:02)
[2024-09-27] MEDS: FAMOTIDINE 20MG IV PUSH 20 MG/5 ML SYR IV STA (13:02)
[2024-09-27 13:23] LABS: Basophils # (auto) 0.05 K/uL (0.00-0.20); Basophils % (auto) 0.7 %; Eosinophils # (auto) 0.17 K/uL (0.00-0.50); Eosinophils % (auto) 2.3 %; Hematocrit (blood only) 46.3 % (42.0-52.0); Hemoglobin 16.9 g/dl (14.0-18.0); Immature Granulocytes # (auto) 0.03 K/uL (0.01-0.20); Immature Granulocytes % (auto) 0.4 %; Lymphocytes # (auto) 1.55 K/uL (1.20-3.40); Mean Corpuscular Hemoglobin 31.5 pg (25.0-34.0); Mean Corpuscular Hgb Conc 36.5 g/dL (32.0-36.0); Mean Corpuscular Volume 86.2 fL (80.0-100.0); Mean Platelet Volume 9.7 fL (9.4-12.4); Monocytes % (auto) 6.8 %; Neutrophils # (auto) 5.08 K/uL (1.40-6.50); Neutrophils % (auto) 68.8 %; Platelet Count 335 K/uL (130-400); RDW Coefficient of Variation 11.9 % (11.5-14.5); RDW Standard Deviation 37.6 fL (36.4-46.3); Red Blood Count 5.37 M/uL (4.70-6.10); White Blood Count 7.38 K/ul (4.8-10.8)
[2024-09-27 13:39] LABS: Albumin Level 4.9 gm/dl (3.4-5.0); BUN Creatinine Ratio 14.4 (10-20); Calcium 9.6 mg/dl (8.6-10.3); Globulin 2.5 gm/dl (2.5-4.0); Potassium 3.6 mmol/L (3.5-5.1); Total Protein 7.4 gm/dl (6.0-8.3)
--- NOTE | 2024-09-27 15:43 | Emergency Department Note ---
ED Visit Note The patient was seen and examined with bamat. I performed a substantive portion of all aspects of the medical decision making and agree with the history, physical and findings. Please see the note for disposition and details. 1543: Patient having increased lip swelling and more urticaria status post IM epi at home, IV Benadryl, IV Solu-Medrol, and IV Pepcid. Patient be given a repeat dose of IM epi and admitted to the hospitalist team. .
[2024-09-27] MEDS: EPINEPHrine INJ 1 MG/ML AMP IM STA (15:50)
--- NOTE | 2024-09-27 16:44 | History & Physical Report ---
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 Did well for 3 hours and then shortly before discharge from ER developed return of urticaria and some lip swelling without wheezing/airway compromise IM epi second dose given with clinical improvement Patient continued on IV Solu-Medrol, IV Pepcid, IV Benadryl and IM epi is available on-call If patient has symptoms past a third dose of epi then would need transfer to the ICU for potential epinephrine drip 0.1 mcg/kg/min Patient may not receive oral steroids other than brand Orapred as these contain lactose filler materials. Will need to check any p.o. medications against formulary to ensure that they do not contain lactose fillers Continue Benadryl 25 mg IV every 6 hours as needed. Transition to cetirizine when stable Continue famotidine twice daily -Reassessment in the ER x 2 patient remains clinically stable and does not have wheezing or airway involvement. Posterior oropharynx is clear (2) Elevated liver enzymes: Plan: Daily alcohol use Patient has a resting tremor at baseline which preceded any alcohol use in which is quieted with alcohol. Denies withdrawal symptoms, past seizure, or alcohol dependence but does have 1-3 drinks of alcohol daily for many months and LFTs are elevated. Denies Tylenol use LFTs trended No bilirubin elevation, no abdominal pain to suggest obstructive pathology If persistent elevation, obtain liver ultrasound and acute [place] panel 09/28 AWSS at risk protocol while admitted Plan Asthma Albuterol as needed, anaphylaxis treatment as above No wheezing or airway compromise on admission DVT prophylaxis: SCDs CODE STATUS: Full code Disposition: PCU. If requiring ongoing doses of IM epinephrine or evidence of airway compromise would need transfer to the ICU for IV epinephrine and potential intubation at that time. Neither these are indicated at time of admitting assessment. 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 Patient immediately gave himself 1 dose of IM epinephrine via EpiPen presented to the ER and was initially doing well until was evaluated and observed for approximately 3 hours when he continued to do well until approximately 343 when he had increased lip swelling and urticaria developing on his left arm. Patient was given an additional dose of IM epi nephrine and recommended for overnight observation. Male seen with his family at the bedside. He reports he has a longstanding allergy of anaphylaxis to cheese products. He had some venison which he did not realize had cheese mixed into this and knows he does not normally eat cheese so he did not initially recognize what it was. When he started to have swelling and itching and rash on his arms he then realized that this was cheese gave himself an epinephrine dose and presented to the ER. He reports that he has had over 20 episodes of anaphylaxis in the past, but is never needed to be intubated for this. Reports that after accidental ingestions usually improves after a couple of hours although has needed to use his EpiPen several times. At time of hospitalist assessment he is tremulous after receiving a second dose of epinephrine, but denies itching wheezing or shortness of breath. Previously noted lip swelling has completely resolved. Does have some improving nearly resolved urticaria on the left arm. No nausea/vomiting. No diarrhea. No abdominal pain. No fevers or chills Uses an albuterol inhaler as needed for asthma. Denies other daily medication use Denies medication allergies, does have milk/egg/nut allergies as noted Drinks around 1-3 drinks of alcohol daily. Has never had withdrawal symptoms previously. Reports he does have a resting tremor for his entire life which is somewhat quieted with alcohol, but was present even before drinking and has not had any seizures. Uses chew tobacco. Full code Allergies Allergy/AdvReac Type Severity Reaction Status Date / Time cheese Allergy Severe Anaphylaxis Verified 08/29/24 10:04 egg Allergy Severe Anaphylaxis Verified 08/29/24 10:04 milk Allergy Severe Anaphylaxis Verified 08/29/24 10:04 peanut Allergy Severe Anaphylaxis Verified 08/29/24 10:04 animal dander Allergy Intermediate Watery Verified 08/29/24 10:04 eyes, itchy throat grass pollen Allergy Intermediate Watery Verified 08/29/24 10:04 eyes, itchy throat house dust Allergy Intermediate Watery Verified 08/29/24 10:04 eyes, itchy throat mold Allergy Intermediate Watery Verified 08/29/24 10:04 eyes, itchy throat Home Medications Medication Instructions Recorded Confirmed Type albuterol sulfate 90 mcg/actuation 2 inh inhalation DIRECTED PRN 08/29/24 09/27/24 Rx aerosol inhaler shortness of breath or wheezing #6.7 grams epinephrine 0.3 mg/0.3 mL 0.3 mg (0.3 mL) IM ONCE PRN 09/27/24 Rx injection, auto-injector (EpiPen anaphylaxis #1 ea 2-Amrit) Past Med/Surg History Problem List (Updated 09/27/24 @ 15:17 by Corky Quinones PA-C) Allergic reaction (Acute) Post-nasal drip Elevated liver enzymes Dyshidrotic eczema Abrasion of left index finger Asthma (Chronic) 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) Medical History (Updated 09/27/24 @ 15:17 by Corky Quinones PA-C) Umbilical hernia without obstruction and without gangrene Encounter for pre-operative examination Supraumbilical hernia without gangrene and without obstruction Atopic dermatitis Gynecomastia Epididymal cyst Gastro-esophageal reflux disease without esophagitis Anxiety Hx of colonic polyp Age 21 (x1 polyp) GERD (gastroesophageal reflux disease) diet controlled Narcolepsy without cataplexy ADHD Anxiety controlled Depression controlled Eczema Asthma Allergy-induced asthma History of COVID-2021- mild flu symptoms > resolved Surgical History History of umbilical hernia repair (05/17/24) Open Umbilical Hernia Repair - Tom Alvarez, , FACS H/O ventral hernia repair History of esophagogastroduodenoscopy (EGD) History of wisdom tooth extraction H/O colonoscopy Family History Mother Breast cancer Hypertension Grandmother Hypertension Grandfather Diabetes Heart disease Cancer Grandmother Diabetes Breast cancer Father Myocardial infarction Uncle Stroke Other No family history of adverse response to anesthesia Denies family history of Ovarian cancer Prostate cancer Colorectal cancer Social History (Updated 08/29/24 @ 10:14 by Ericka Orr LPN) Smoking Status: Never smoker Tobacco Type: Smokeless Tobacco (Dip or Chew) Age Started Using Tobacco: 20; Cigarettes Per Day: vapes daily (advised on policy); Second Hand Exposure: Yes; Do You Dip or Chew Tobacco: Yes (1 can/2 days (advised on policy)); Hx Alcohol Use: Yes Alcohol type: beer and hard liquor Alcohol Intake Frequency: 4 or More x per/Week Hx Substance Use: Yes (smokes marijuana (advised on policy)) Non-Prescribed Medications: Amphetamines and Marijuana Last Used Substance: Days (ago) Last U sed Substance Other:: ~04/29/24 (advised on policy)last time asked [id number] last smoked 07/30/24 Preferred Language: Kenyan Communication Ability: Effective Visual Impairment: No Limitations Hearing Ability: Normal Apprentice Painter Hand Required: No Beliefs That Will Affect Care: None marital status: single Current Living Situation: Family current occupational status: employed current occupation: [employer] How many Children do You have: 0 Feels Safe at Home: Yes Childhood Exposure to Second-Hand Smoke: Yes Diet: regular caffeine: Yes (soda/coffee) during the past year weight has: remained stable Dental Care, Regularly: Yes Physical Activity Frequency: 3-4 Times per Week Seatbelt Use: always Sunscreen Use: No Assistive Devices: Nebulizer Physical Exam Physical Exam: General: A&Ox3. NAD. Cooperative. HEENT: Atraumatic, normocephalic. Posterior oropharynx is without swelling/edema. Tongue is without swelling/edema. Lip is without tongue/edema. Pulm: CTAB A&P. -wheezes, -rales, -rhonchi. No stridor. Symmetrical chest rise. No increased work of breathing. No respiratory distress. Cardiac: Tachycardic, -mrg. Radial pulses intact and symmetrical. Abdominal: Nontender, nondistended, soft. BS present. Extremities: Mild resting tremor in upper extremities bilaterally. Slight nearly resolved urticaria on the left arm and ankles bilaterally. Results & Data Results & Data Vital Signs (Past 12 Hours) Vital Signs Temp Pulse Resp BP Pulse Ox O2 Del Method 09/27/24 16:06 111 H 22 97 09/27/24 15:36 113 H 20 145/85 H 98 09/27/24 15:00 100 H 18 138/86 94 09/27/24 14:30 100 H 17 131/92 100 09/27/24 14:21 102 H 17 131/92 100 09/27/24 14:00 109 H 17 133/98 100 09/27/24 13:36 97 H 23 139/103 H 100 09/27/24 13:20 Room Air 09/27/24 13:09 99 H 19 135/103 H 100 09/27/24 12:59 109 H 09/27/24 12:50 97 Room Air 09/27/24 12:37 36.6 C 112 H 20 156/97 H 100 Room Air PG Care Time/CCT Total # of Minutes Spent Total Time Spent with Patient: Total time spent is greater than 50% in coordination of care (as documented) at patient's floor/unit and/or counseling patient: Coding Level of Care Code 90508 INT INP/OBS CARE 375MIN Diagnoses Anaphylaxis T78.2XXA Encounter type: initial encounter Elevated liver enzymes R74.8 (1) Anaphylaxis Encounter type: initial encounter Qualified Code(s): T78.2XXA - Anaphylactic shock, unspecified, initial encounter
[2024-09-27] MEDS ORDERED: LORazepam 2 MG/1 ML VIAL IV PRN ×4 (17:05→17:31)
[2024-09-27] MEDS ORDERED: EPINEPHrine INJ 1 MG/ML AMP IM PRN (17:15)
[2024-09-27] MEDS ORDERED: Ativan IV Alcohol Withdrawal--Active Protocol IV PRN (17:31)
[2024-09-27] MEDS: FAMOTIDINE 20MG IV PUSH 20 MG/5 ML SYR IV ONE (17:34)
[2024-09-27] MEDS ORDERED: ALBUTEROL HFA 8 GM INHALER INH PRN (18:26)
[2024-09-27] MEDS: diphenhydrAMINE 50 MG/ML VIAL IV SCH (18:48)
--- OUTSIDE RECORDS SUMMARY | 2024-09-28 01:01 | External Medical Summary | Summary of Care ---
Author Name Unknown Organization [facility] Address [address] [place] [address] Phone [phone] Care Team Providers Care Partner Cco Name Role Phone Biju Esparza MD Primary Care Provider Reason for Visit * Reason Onset Date Comments Medication Refill 09/06/2024 Encounter Details Date Type Department Care Team ([facility] st Contact Info) Description 09/06/2024 Refill Sleep Disorders, [address] [address] Saima Lu MD [address] [place] [id number] Narcolepsy without cataplexy Allergies Active Allergy Reactions Criticality Noted Date Comments Egg-Derived Products 11/05/2011 Anaphylaxis Tilactase 11/05/2011 Anaphylaxis Peanut-Containing Drug Products 10/12 Anaphylaxis documented as of this encounter (statuses as of 09/07/2024) Medications ALBUTEROL 90 MCG/ACT IN AERS as needed Active EPIPEN 2-MACRINA 0.3 MG/0.3ML IJ TC as directed Active BENADRYL 25 MG PO CAPS as needed Active Cephalexin 500 MG Oral Capsule (Keflex)Indica tions:Acne vulgaris,Folli culitis 1 pill 2x daily with or without food 60 Capsule 3 2 Active Additional Information Patient not taking.Reported on 07/06/2023 Tacrolimus 0.1 % External Ointment (Protopic)Janna cations:Other atopic dermatitis Apply to rash on face daily for one month then use to entire body Wed-Wed 100 g 1 2 Active Wakix 4.45 MG Oral Tablet (Pitolisant HCl) Take 4.45 mg by mouth in the morning. 30 Tablet 3 3 Active Additional Information Patient not taking.Reported on 07/06/2023 Triamcinolone Acetonide 0.1 % External Cream (Aristocort)In dications:Othe r atopic dermatitis apply topically to affected area ON TRUNK/EXTREMITI ES twice a day for 1 month THEN SWITCH TO JUST WEDNESDAY THROUGH WEDNESDAY 454 g 3 Active Clindamycin Phosphate 1 % External GelIndications :Acne vulgaris,Folli culitis apply topically to face and body twice daily. 60 g 3 Active Amphetamine-De xtroamphet ER 30 MG Oral Capsule Extended Release 24 Hour (Adderall XR)Indications :Narcolepsy without cataplexy Take 1 capsule by mouth two times a day. 60 Capsule 4 Active Amphetamine-De xtroamphet ER 30 MG Oral Capsule Extended Release 24 Hour (Adderall XR)Indications :Narcolepsy without cataplexy Take 1 capsule by mouth two times a day. 60 Capsule 4 09/06/20 24 Discontin ued(Refil l) documented as of this encounter (statuses as of 09/07/2024) Active Problems Problem Noted Date Diagnosed Date JESSICA (obstructive sleep apnea) 10/15/2016 Depression with anxiety 06/19/2016 Narcolepsy without cataplexy 06/19/2016 Overview (02/11/2021): ICD-10 update of inactive term Atopic dermatitis 05/08/2013 documented as of this encounter (statuses as of 09/07/2024) Social History Tobacco Use Types Packs/Day Years Used Date Smoking Tobacco: Every Day Smokeless Tobacco: Never Comments:Hooka Alcohol Use Standard Drinks/Week Comments Yes 0 (1 standard drink = 0.6 oz pur e alcohol) occasional Sex and Gender Information Value Date Recorded Sex Assigned at Not on file Legal Sex Male 5:36 AM EST Gender Identity Not on file Sexual Orientation Not on file documented as of this encounter Miscellaneous Notes * Telephone Encounter - Saima Lu MD - 09/07/2024 7:51 PM ESTSigned Prescriptions: Disp Refills Amphetamine-Dextroamphet ER 30 MG Oral Cap*60 Cap*0 Sig: Take 1 capsule by mouth two times a day. Authorizing Provider: SAIMA LU * Telephone Encounter - Shannon Brice LPN - 09/06/2024 4:25 PM EST Did you pend patient's preferred pharmacy and medication before forwarding?yes Pharmacy: [id number] [facility] Pending Prescriptions: Disp Refills Amphetamine-Dextroamphet ER 30 MG Oral Ca*60 Cap*0 Sig: Take 1 capsule by mouth two times a day. Last Visit: 11/22/2017 (in office), 01/04/2024 (telemedicine) Next Visit: Visit date not found If no future appointments scheduled, and last appointment is greater than a year ago, please schedule patient for a follow-up appointment Last date the medication was ordered: 08/08/24 Urine Drug Screen: Results for orders placed or performed in visit on 09/23/16 TOX SCREEN, URINE, W/O CONFIRMATION Result Value AMPHETAMINES POSITIVE (A) BARBITURATES NEGATIVE BENZODIAZEPINES NEGATIVE CANNABINOIDS NEGATIVE COCAINE METABOLITE NEGATIVE MORPHINE/ CODEINE NEGATIVE METHADONE METABOLITE NEGATIVE OXYCODONE NEGATIVE NOTE: THE ABOVE SCREENING RESULTS ARE PRESUMPTIVE AND CAN ONLY BE USED FOR MEDICAL PURPOSES. CONFIRMATORY TESTING IS AVAILABLE UPON REQUEST. CUTOFF CONCENTRATION Patient Phone Numbers Labs: No results found for: "CREAT", "POTASSIUM", "TSH", "LDL", "LDLCALC", "LDLDIRECT", "LDLCHOL", "ALT","HGBA1C" documented in this encounter Plan of Treatment Upcoming Encounters Date Type Department Care Team (Late st Contact Info) Description 01/05/2025 11:00 AM EDT Telemedicine [facility] [place] [address] [place] [phone] Saima Lu MD [address] [facility] [place] [address] Health Maintenance Due Date Last Done Comments Pneumococcal Vaccine: Pediat rics (0 to 5 Years) and At-Risk Patients (6 to 64 Years) (1 of 2 - PCV) 2003 DTap/Tdap Vaccines (6 - Tdap) 2008, 10/07/1998, 1997, Additional history exists Depression Monitoring 2009 HIV Screening 2012 Hepatitis C Screening 2015 COVID-19 Vaccine (2023-2 5 season) 2024 Influenza Vaccine (FLU shot) (#1) 2024 Hepatitis B Vaccine Completed 1997, 1997, 1997 MENINGOCOCCAL (MENACTRA/MENVEO) Completed 3, 04/23/2010 HPV (Gardasil) Vaccine Completed 7, 08/01/2014, 06/16/2013 documented as of this encounter Medical Devices Not on filedocumented as of this encounter Visit Diagnoses Diagnosis Narcolepsy without cataplexy documented in this encounter Care Teams Partner Cco Relationship Specialty Start Date End Date Biju Esparza MD [address] [place] [address] PCP - General Pediatrics 06/19/16 documented as of this encounter
--- OUTSIDE RECORDS SUMMARY | 2024-09-28 01:02 | External Medical Summary | Summary of Care ---
Author Name Unknown Organization [facility] Address [address] [place] [address] Phone [phone] Care Team Providers Care Search Director Name Role Phone Biju Esparza MD Primary Care Provider Reason for Visit * Reason Onset Date Comments Medication Refill 09/05/2024 Encounter Details Date Type Department Care Team ([facility] st Contact Info) Description 09/05/2024 Telephone Sleep Disorders, [address] [address] Yessi Goodrich MD [address] [place] [address] Medication Refill Allergies Active Allergy Reactions Criticality Noted Date Comments Egg-Derived Products 11/05/2011 Anaphylaxis Tilactase 11/05/2011 Anaphylaxis Peanut-Containing Drug Products 10/12 Anaphylaxis documented as of this encounter (statuses as of 09/05/2024) Medications ALBUTEROL 90 MCG/ACT IN AERS as needed Acti ve EPIPEN 2-MACRINA 0.3 MG/0.3ML IJ TC as directed Active BENADRYL 25 MG PO CAPS as needed Active Cephalexin 500 MG Oral Capsule (Keflex)Indicat ions:Acne vulgaris,Follic ulitis 1 pill 2x daily with or without food 60 Capsule 3 2 Active Additional Information Patient not taking.Reported on 07/06/2023 Tacrolimus 0.1 % External Ointment (Protopic)Indic ations:Other atopic dermatitis Apply to rash on face daily for one month then use to entire body Wed-Wed 100 g 1 2 Active Wakix 4.45 MG Oral Tablet (Pitolisant HCl) Take 4.45 mg by mouth in the morning. 30 Tablet 3 3 Active Additional Information Patient not taking.Reported on 07/06/2023 Triamcinolone Acetonide 0.1 % External Cream (Aristocort)Ind ications:Other atopic dermatitis apply topically to affected area ON TRUNK/EXTREMITIE S twice a day for 1 month THEN SWITCH TO JUST WEDNESDAY THROUGH WEDNESDAY 454 g 3 Active Clindamycin Phosphate 1 % External GelIndications: Acne vulgaris,Follic ulitis apply topically to face and body twice daily. 60 g 3 Active Amphetamine-Dex troamphet ER 30 MG Oral Capsule Extended Release 24 Hour (Adderall XR)Indications: Narcolepsy without cataplexy Take 1 capsule by mouth two times a day. 60 Capsule 4 Active documented as of this encounter (statuses as of 09/05/2024) Active Problems Problem Noted Date Diagnosed Date JESSICA (obstructive sleep apnea) 10/15/2016 Depression with anxiety 06/19/2016 Narcolepsy without cataplexy 06/19/2016 Overview (02/11/2021): ICD-10 update of inactive term Atopic dermatitis 05/08/2013 documented as of this encounter (statuses as of 09/05/2024) Social History Tobacco Use Types Packs/Day Years [...] encounter Miscellaneous Notes * Telephone Encounter - Pam Rivas, JESSICA - 09/05/2024 3:33 PM EST Pt is requesting refill on Adderall. Marie Conti documented in this encounter Plan of Treatment Upcoming Encounters Date Type Department Care Team (Late st Contact Info) Description 01/05/2025 11:00 AM EDT Telemedicine Sleep Disorders Medicine [facility], [place] [address] [place] [phone] Yessi Goodrich MD [address] [facility] [place] [address] Health Maintenance Due Date Last Done Comments Pneumococcal Vaccine: Pediat rics (0 to 5 Years) and At-Risk Patients (6 to 64 Years) (1 of 2 - PCV) 2003 DTap/Tdap Vaccines (6 - Tdap) 2008, 10/07/1998, 1997, Additional history exists Depression Monitoring 2009 HIV Screening 2012 Hepatitis C Screening 2015 COVID-19 Vaccine ( - 2023-2 5 season) 2024 Influenza Vaccine (FLU shot) (#1) 2024 Hepatitis B Vaccine Completed 1997, 1997, 1997 MENINGOCOCCAL (MENACTRA/MENVEO) Completed 3, 04/23/2010 HPV (Gardasil) Vaccine Completed 7, 08/01/2014, 06/16/2013 documented as of this encounter Medical Devices Not on filedocumented as of this encounter Care Teams Search Director Relationship Specialty Start Date End Date Biju Esparza MD [address] [place] [address] PCP - General Pediatrics 06/19/16 documented as of this encounter
[2024-09-28] MEDS: FAMOTIDINE 20MG IV PUSH 20 MG/5 ML SYR IV SCH (06:00)
[2024-09-28] MEDS ORDERED: diphenhydrAMINE 50 MG/ML VIAL IV PRN (07:01)
[2024-09-28 07:02] LABS: Basophils # (auto) 0.01 K/uL (0.00-0.20); Basophils % (auto) 0.1 %; Eosinophils # (auto) 0.01 K/uL (0.00-0.50); Eosinophils % (auto) 0.1 %; Hematocrit (blood only) 42.6 % (42.0-52.0); Hemoglobin 15.6 g/dl (14.0-18.0); Immature Granulocytes # (auto) 0.03 K/uL (0.01-0.20); Immature Granulocytes % (auto) 0.4 %; Lymphocytes # (auto) 0.86 K/uL (1.20-3.40); Lymphocytes % (auto) 10.6 %; Mean Corpuscular Hemoglobin 31.3 pg (25.0-34.0); Mean Corpuscular Hgb Conc 36.6 g/dL (32.0-36.0); Mean Corpuscular Volume 85.4 fL (80.0-100.0); Mean Platelet Volume 9.8 fL (9.4-12.4); Monocytes # (auto) 0.61 K/uL (0.11-0.59); Monocytes % (auto) 7.5 %; Neutrophils # (auto) 6.58 K/uL (1.40-6.50); Neutrophils % (auto) 81.3 %; Platelet Count 368 K/uL (130-400); RDW Coefficient of Variation 11.7 % (11.5-14.5); RDW Standard Deviation 36.7 fL (36.4-46.3); Red Blood Count 4.99 M/uL (4.70-6.10)
[2024-09-28 07:21] LABS: Albumin Globulin Ratio 1.7 (0.9-2); Albumin Level 4.3 gm/dl (3.4-5.0); BUN Creatinine Ratio 14.1 (10-20); Bilirubin,Total 1.1 mg/dl (0.2-1.0); Calcium 9.4 mg/dl (8.6-10.3); Creatinine Clr Calc Pharmacy 185.8 ml/min; Globulin 2.5 gm/dl (2.5-4.0); Potassium 3.7 mmol/L (3.5-5.1); Total Protein 6.8 gm/dl (6.0-8.3)
[2024-09-28 07:35] VITALS: TEMP 98.1
[2024-09-28] MEDS ORDERED: methylPREDNISolone 125 MG/2 ML VIAL IV ONE (09:00)
[2024-09-28] MEDS: methylPREDNISolone 60 MG in SYRINGE 0 ML IV ONE (09:07)
--- NOTE | 2024-09-28 10:14 | Discharge Summary ---
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 Did well for 3 hours and then shortly before discharge from ER developed return of urticaria and some lip swelling without wheezing/airway compromise IM epi second dose given with clinical improvement Patient continued on IV Solu-Medrol, IV Pepcid, IV Benadryl and IM epi is available on-call If patient has symptoms past a third dose of epi then would need transfer to the ICU for potential epinephrine drip 0.1 mcg/kg/min Patient may not receive oral steroids other than brand Orapred as these contain lactose filler materials. Will need to check any p.o. medications against formulary to ensure that they do not contain lactose fillers Continue Benadryl 25 mg IV every 6 hours as needed. Transition to cetirizine when stable Continue famotidine twice daily -Reassessment in the ER x 2 patient remains clinically stable and does not have wheezing or airway involvement. Posterior oropharynx is clear -Pt doing well in am 09/28. No further symptoms, ready to tolerate regular diet. No airway compromise. (2) Elevated liver enzymes: Daily alcohol use Patient has a resting tremor at baseline which preceded any alcohol use in which is quieted with alcohol. Denies withdrawal symptoms, past seizure, or alcohol dependence but does have 1-3 drinks of alcohol daily for many months and LFTs are elevated. Denies Tylenol use LFTs trended No bilirubin elevation, no abdominal pain to suggest obstructive pathology If persistent elevation, obtain liver ultrasound and acute [place] panel 09/28 AWSS at risk protocol while admitted Plan Asthma Albuterol as needed, anaphylaxis treatment as above No wheezing or airway compromise on admission DVT prophylaxis: SCDs CODE STATUS: Full code Disposition: PCU. If requiring ongoing doses of IM epinephrine or evidence of airway compromise would need transfer to the ICU for IV epinephrine and p otential intubation at that time. Neither these are indicated at time of admitting assessment. 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 Patient immediately gave himself 1 dose of IM epinephrine via EpiPen presented to the ER and was initially doing well until was evaluated and observed for approximately 3 hours when he continued to do well until approximately 343 when he had increased lip swelling and urticaria developing on his left arm. Patient was given an additional dose of IM epinephrine and recommended for overnight observation. Male seen with his family at the bedside. He reports he has a longstanding allergy of anaphylaxis to cheese products. He had some venison which he did not realize had cheese mixed into this and knows he does not normally eat cheese so he did not initially recognize what it was. When he started to have swelling and itching and rash on his arms he then realized that this was cheese gave himself an epinephrine dose and presented to the ER. He reports that he has had over 20 episodes of anaphylaxis in the past, but is never needed to be intubated for this. Reports that after accidental ingestions usually improves after a couple of hours although has needed to use his EpiPen several times. At time of hospitalist assessment he is tremulous after receiving a second dose of epinephrine, but denies itching wheezing or shortness of breath. Previously noted lip swelling has completely resolved. Does have some improving nearly resolved urticaria on the left arm. No nausea/vomiting. No diarrhea. No abdominal pain. No fevers or chills Uses an albuterol inhaler as needed for asthma. Denies other daily medication use Denies medication allergies, does have milk/egg/nut allergies as noted Drinks around 1-3 drinks of alcohol daily. Has never had withdrawal symptoms previously. Reports he does have a resting tremor for his entire life which is somewhat quieted with alcohol, but was present even before drinking and has not had any seizures. Uses chew tobacco. Full code Discharge Exam GENERAL APPEARANCE NAD, activity normal for age, well developed/ well nourished, no cyanosis, pallor, or diaphoresis. EYES lids/conjunctiva normal. EARS/NOSE/THROAT Mucous membranes moist, nares normal, lips/teeth normal uvula midline without oral pharyngeal erythema, exudate or swelling TMs normal bilaterally. No lymphangitis/lymphedema. HEAD/NECK normocephalic atraumatic, no facial trauma, neck is supple. RESPIRATORY respiratory effort normal, speaks in full sentences, no tripod position, no accessory muscle use. Lungs clear to auscultation without rhonchi, wheezes, rales CARDIAC Regular rate and rhythm, no edema. ABDOMINAL Soft, ND/NT. No evidence of fluid wave. No pulsatile masses on exam, rebound tenderness, Haro sign or pain over Mcburney's point. MUSCLES/EXTREMITIES No abnormal range of motion, no swelling. SKIN Warm, pink and dry. No rashes, dermatoses, petechiae or lesions. NEUROLOGICAL Speech is clear and appropriate. Normal level of consciousness. Gait and coordination are normal. 5/5 strength in all extremities. PSYCH Normal mood and affect. Judgement/competence is appropriate Discharge Plan Discharge Items Patient Disposition: Home - Self-Care Reason For Visit: ANAPHYLAXIS Discharge Diagnosis: anaphylaxis Condition on Discharge: Good Activity: Resume your previous activity Non-emergency contact: Primary Care Provider Call non-emergency contact if: you have any medication questions Follow-up/Referrals: Jane Ng MD [Primary Care Provider] - Diet: Regular Addtl Attending Provider Instructions: Return to ER if symptoms reoccure Pending Studies at Discharge: No Stand-Alone Forms: [facility] [employer], Smoking Cessation Medications and DC Order Prescriptions: New epinephrine [EpiPen 2-Amrit] 0.3 mg/0.3 mL auto-injector 0.3 mg IM ONCE PRN (Reason: anaphylaxis) Qty: 1 1RF prednisolone sodium phosphate [Orapred ODT] 10 mg tablet,disintegrating 10 mg PO DAILY Qty: 30 0RF Rx Instructions: Take 4 tabs daily for 1 day then, take 3 tabs daily for 1 day then, take 2 tabs daily for 1 day then take 1 tab daily for 1 day Continued albuterol sulfate 90 mcg/actuation HFA aerosol inhaler 2 inh INH DIRECTED PRN (Reason: shortness of breath or wheezing) Qty: 6.7 5RF Discharge Orders: Discharge Order (Routine); Ordered 09/28/24 Ordered By: Nam Abdi Admission Data Admit Date/Time: 09/27/24 17:03 Attending Provider: Nam Abdi Admit Provider: Howard Renner Primary Care Provider: Jane Ng Other Providers: Howard Renner Hospital Stay Data Consultations 09/27/24 16:19 ED Decision to Admit Stat Pending Results Patient Have Any Pending Studies at Discharge: No Discharge Instructions Given to Patient (Per Discharging Provider) Return to ER if symptoms reoccure Total Time Total Time Spent Total Time Spent (In Minutes): 50 Coding Level of Care Code 57168 INP/OBS DISCH >30 MIN Diagnoses Anaphylaxis T78.2XXA Encounter type: initial encounter Elevated liver enzymes R74.8
[2024-09-28 10:44] VITALS: BP 129/84; PULSE 99; RESP 18; O2SAT 100
== END 2024-09-28 11:33 | disposition home or self-care (01) | DRG 916 ==
LOC: ED 12:34 → 2S 17:03 → SUATTDRO 17:03 → 2S 17:58
DX: Z91.048 Other nonmedicinal substance allergy status; Z91.012 Allergy to eggs; T78.07XA Anaphylactic reaction due to milk and dairy products, initial encounter; R74.01 Elevation of levels of liver transaminase levels; R25.1 Tremor, unspecified; J45.909 Unspecified asthma, uncomplicated; F17.220 Nicotine dependence, chewing tobacco, uncomplicated; Z91.010 Allergy to peanuts; F17.290 Nicotine dependence, other tobacco product, uncomplicated